=== PATIENT | female | born 1945 | race Caucasian/White ===

== ENCOUNTER 2017-05-14 15:34 | Outpatient (CLI) | payer MEDICARE | END 2017-05-14 15:35 | disposition home or self-care (01) | LOC: BICMAMMO 15:34 | PROVIDERS: ATTEND Family Medicine | DX: R92.8 Other abnormal and inconclusive findings on diagnostic imaging of breast (principal) | CPT/HCPCS: 76642; G0204; G0279; 77066 ==

== ENCOUNTER 2018-10-21 08:39 | Outpatient (CLI) | payer MEDICARE ==
--- NOTE | 2018-10-21 10:47 | MMO ---
Bilateral MAMMO Bilat Screen [facility]. CLINICAL HISTORY: Patient is 73 years old and is seen for screening. The patient has no family history of breast cancer. The patient has no personal history of cancer. VIEWS: The views performed were: bilateral craniocaudal with tomosynthesis and bilateral mediolateral oblique with tomosynthesis. FILMS COMPARED: The present examination has been compared to prior imaging studies performed at [facility] on 05/14/2017, and at [facility] on 06/06/2015, 06/07/2015 and 12/26/2015. MAMMOGRAM FINDINGS: There are scattered fibroglandular densities. There are no suspicious masses, calcifications or areas of architectural distortion. There are benign appearing calcifications in both breasts. There are no suspicious masses, suspicious calcifications, or new areas of architectural distortion. IMPRESSION: THERE IS NO MAMMOGRAPHIC EVIDENCE OF MALIGNANCY. A ROUTINE FOLLOW-UP MAMMOGRAM IN 1 YEAR IS RECOMMENDED. THE RESULTS OF THIS EXAM WERE SENT TO THE PATIENT. ACR BI-RADS Category 2 - Benign finding MAMMOGRAPHY NOTE: 1. A negative mammogram report should not delay a biopsy if a dominant of clinically suspicious mass is present. 2. Approximately 10% to 15% of breast cancers are not detected by mammography. 3. Adenosis and dense breasts may obscure an underlying neoplasm. Reported by: NATALYA RUSSELL MD Electonically Signed: [id number]
== END 2018-10-21 08:40 | disposition home or self-care (01) ==
LOC: BICMAMMO 08:39
PROVIDERS: ATTEND Family Medicine
DX: Z12.31 Encounter for screening mammogram for malignant neoplasm of breast (principal)
CPT/HCPCS: 77063; 77067

== ENCOUNTER 2018-12-09 07:25 | Outpatient (CLI) | payer MEDICARE ==
--- NOTE | 2018-12-09 12:57 | MRI ---
MRI ABDOMEN WITH AND WITHOUT IV CONTRAST: HISTORY: Cirrhosis of the liver. COMPARISON: 09/02/2016. CORRELATION: CT scan of 08/19/2016 and abdominal ultrasound of 08/26/2016. FINDINGS: The liver demonstrates an irregular surface consistent with cirrhosis. The approximately 2 cm focal area of low T1 and heterogeneous high T2 signal in the left lobe of the liver corresponding to the fi ndings on the CT scan and ultrasound is stable with mild internal enhancement. No other liver mass i s seen demonstrating hypervascularity on arterial images. No abnormal biliary ductal dilatation is n oted. The patient is post cholecystectomy. Splenomegaly is stable measuring 16.5 cm. The pancreas and adrenal glands are normal. Bilateral maggie al cysts are again noted, a few of which in the right kidney continue to demonstrate high T1 signal a nd may be hemorrhagic. No free fluid or lymphadenopathy is seen. There is no evidence of aneurysmal dilatation of the abdom inal aorta. The bone marrow signal is normal. No ascites is seen. IMPRESSION: 1. Cirrhosis of the liver. 2. Splenomegaly. 3. Bilateral renal cysts. 4. Stable left liver lobe lesion. POS: [facility]
[2018-12-09] MEDS ORDERED: Gadobenate Dimeglumine 529 MG/1 ML (20ML VIAL) ONE (15:26)
== END 2018-12-09 07:26 | disposition home or self-care (01) ==
LOC: BICMRI 07:25
PROVIDERS: ATTEND Internal Medicine Gastroenterology
DX: K74.60 Unspecified cirrhosis of liver (principal); R16.2 Hepatomegaly with splenomegaly, not elsewhere classified; N28.1 Cyst of kidney, acquired; K76.9 Liver disease, unspecified
CPT/HCPCS: 74183; 82565; A9577

== ENCOUNTER 2019-01-18 08:43 | Outpatient (CLI) | payer MEDICARE ==
--- NOTE | 2019-01-18 11:21 | BD ---
DEXA BONE DENSITY STUDY: Date: 01/18/19 HISTORY: Postmenopausal female. Screening study. COMPARISON: 12/26/15. FINDINGS: Lumbar Spine: BMD (g/cm2) L1 1.027 T-Score: 0.3 Z-Score: 2.3 L2 0.984 T-Score: -0.4 Z-Score: 1.8 L3 0.938 T-Score: -1.3 Z-Score: 1.0 L4 1.028 T-Score: -0.3 Z-Score: 2.1 L1-L4 0.995 T-Score: -0.5 Z-Score: 1.7 12/26/15: 0.984, -0.6 BMD change vs. baseline: +1.1% BMD change vs. previous: +1.1% Femoral Neck: 0.667 T-Score: -1.6 Z-Score: 0.3 Total Femur: 0.739 T-Score: -1.7 Z-Score: -0.9 12/26/15: 0.777, -1.4 BMD change vs. baseline: -4.9% BMD change vs. previous: -4.9% IMPRESSION: Lumbar Spine: WHO classification is normal. Fracture risk not increased. Femoral Neck: WHO classification is osteopenia. 10 year fracture risk for major osteoporotic fracture is 15% and for a hip fracture is 4.6%. POS: OFF
== END 2019-01-18 08:44 | disposition home or self-care (01) ==
LOC: BICMAMMO 08:43
PROVIDERS: ATTEND Family Medicine
DX: Z13.820 Encounter for screening for osteoporosis (principal); Z78.0 Asymptomatic menopausal state
CPT/HCPCS: 77080

== ENCOUNTER 2020-03-13 11:03 | Outpatient (CLI) | payer MEDICARE ==
--- NOTE | 2020-03-13 11:44 | MMO ---
Bilateral MAMMO Bilat Screen [facility]. CLINICAL HISTORY: Patient is 74 years old and is seen for screening. The patient has no family history of breast cancer. The patient has no personal history of cancer. VIEWS: The views performed were: bilateral craniocaudal with tomosynthesis and bilateral mediolateral oblique with tomosynthesis. FILMS COMPARED: The present examination has been compared to prior imaging studies performed at [facility] on 05/14/2017 and 10/21/2018, and at [facility] on 06/07/2015 and 12/26/2015. This study has been interpreted with the assistance of computer-aided detection. MAMMOGRAM FINDINGS: There are scattered fibroglandular densities. Benign calcifications are noted bilaterally. There are no suspicious masses, suspicious calcifications, or new areas of architectural distortion. IMPRESSION: THERE IS NO MAMMOGRAPHIC EVIDENCE OF MALIGNANCY. A ROUTINE FOLLOW-UP MAMMOGRAM IN 1 YEAR IS RECOMMENDED. THE RESULTS OF THIS EXAM WERE SENT TO THE PATIENT. ACR BI-RADS Category 2 - Benign finding MAMMOGRAPHY NOTE: 1. A negative mammogram report should not delay a biopsy if a dominant of clinically suspicious mass is present. 2. Approximately 10% to 15% of breast cancers are not detected by mammography. 3. Adenosis and dense breasts may obscure an underlying neoplasm. Reported by: KY SARMIENTO MD Electonically Signed: [id number]
== END 2020-03-13 11:04 | disposition home or self-care (01) ==
LOC: BICMAMMO 11:03
PROVIDERS: ATTEND Family Medicine
DX: Z12.31 Encounter for screening mammogram for malignant neoplasm of breast (principal)
CPT/HCPCS: 77063; 77067

== ENCOUNTER 2020-05-24 08:13 | Outpatient (CLI) | payer MEDICARE ==
[2020-05-24] MEDS ORDERED: Magnevist 469MG/ML 20 ML VIAL ONE (18:03)
== END 2020-05-24 08:14 | disposition home or self-care (01) ==
LOC: BICMRI 08:13
PROVIDERS: ATTEND Internal Medicine Gastroenterology
DX: K74.60 Unspecified cirrhosis of liver (principal); K76.0 Fatty (change of) liver, not elsewhere classified; N28.89 Other specified disorders of kidney and ureter; R16.2 Hepatomegaly with splenomegaly, not elsewhere classified
CPT/HCPCS: 74183; 82565; A9579

== ENCOUNTER 2021-05-01 10:47 | Outpatient (CLI) | payer MEDICARE | END 2021-05-01 10:48 | disposition home or self-care (01) | LOC: BICMAMMO 10:47 | PROVIDERS: ATTEND Family Medicine | DX: Z12.31 Encounter for screening mammogram for malignant neoplasm of breast (principal); Z13.820 Encounter for screening for osteoporosis; N95.9 Unspecified menopausal and perimenopausal disorder; M85.851 Other specified disorders of bone density and structure, right thigh; M85.852 Other specified disorders of bone density and structure, left thigh | CPT/HCPCS: 77063; 77067; 77080 ==

== ENCOUNTER 2021-10-28 08:09 | Outpatient (CLI) | payer MEDICARE | END 2021-10-28 08:10 | disposition home or self-care (01) | LOC: SCSMRI 08:09 | PROVIDERS: ATTEND Internal Medicine | DX: R16.0 Hepatomegaly, not elsewhere classified (principal); N26.1 Atrophy of kidney (terminal); N28.1 Cyst of kidney, acquired; K76.6 Portal hypertension; K76.89 Other specified diseases of liver | CPT/HCPCS: 74183 ==